=== PATIENT | female | born 1950 | race American Indian/Alaskan Native ===

== ENCOUNTER 2018-11-28 11:25 | Day surgery (SDC) | payer MEDICARE ==
[2018-11-28] MEDS ORDERED: NACL 0.9% 1000 ML 1,000 ML IV SCH (13:00)
--- NOTE | 2018-11-28 13:20 | Anesthesia Day of Surgery ---
Anesthesia Day of Surgery - Day of Surgery Patient Examined: Yes Patient H&P Reviewed: Yes Patient is NPO: Yes
--- NOTE | 2018-11-28 13:20 | Anesthesia Consultation ---
Anesthesia Consult and Med Hx Date of service: 11/28/18 - Airway Anesthetic Teeth Evaluation: Dentures ROM Head & Neck: Adequate Mental/Hyoid Distance: Adequate Mallampati Class: Class II Intubation Access Assessment: Good - Pulmonary Exam CTA: Yes - Cardiac Exam Cardiac Exam: RRR - Pre-Operative Health Status ASA Pre-Surgery Classification: ASA3 Proposed Anesthetic Plan: MAC (Dementia, HTn, Bipolar , SZ) - Cardiovascular System Hx Hypertension: Yes
[2018-11-28] MEDS ORDERED: DIPRIVAN 10 MG/ML IV ONE ×2 (15:41)
--- NOTE | 2018-11-28 16:15 | Operative Report ---
Operative Report Operative Report: Procedure: Colonoscopy with Ablation of multiple colon polyps. Attending physician: Trevor Nguyen M.D. [employer] Instructor: Trevor Nguyen M.D. Indication: Patient is a 68-year-old female who presents with a history of recurrent blood in stool/rectal bleeding. This colonoscopy serves to evaluate patient so that treatment may be directed based on the findings. Consent: Informed consent was obtained after advising the patient and family regarding nature of this procedure, its indications, potential benefits as well as possible complications including but not limited to bleeding perforation and adverse reaction to medication, infection as well as other cardiopulmonary complications. An informed written and verbal consent was then obtained after due opportunity was provided for questions and answers. Monitoring: Patient was monitored continuously with pulse oximetry and electrocardiographic recordings as well as blood pressure recordings. Vital signs remained stable throughout this procedure with no untoward events. Preoperative assessment: Patient was assessed immediately prior to this procedure for capacity to tolerate monitored anesthesia care and moderate sedation as well as general anesthesia. Patient's ASA classification is 2, Mallampati class is 2, Hyomental distance is 3. Instrument: Olympus video colonoscope.: CF-HQ 190L Medications: Propofol given intravenously in divided doses. For details please refer to anesthesia records. Description of procedure: Patient was placed in the left lateral decubitus position after achieving sedation, a digital rectal examination was performed following which the colonoscope was introduced into the anal verge and advanced to the cecum which was identified by the cecal valve, the appendiceal orifice, as well as by the cecal strap and direct transillumination. The colonoscope was subsequently withdrawn with careful inspection of all mucosal surfaces. Patient tolerated this procedure well and was subsequently taken to the recovery room. The following findings were noted. Findings: The colon was moderately tortuous. The cecum otherwise was normal. The ascending colon was normal. The transverse colon was normal. The descending colon was normal. In the sigmoid colon, the patient had 4 diminutive flat polyps. These were completely ablated. The rectum was normal. On retroflex view of the anal verge, patient had internal hemorrhoids. Impression: Diminutive flat distal sigmoid polyps status post ablation Time managed. Plan: High-fiber diet. When necessary stool softeners. Patient will be followed clinically as an outpatient.
--- NOTE | 2018-11-28 16:18 | Discharge Summary ---
Short Stay Discharge Plan Activity: advance as tolerated Weight Bearing Status: Weight Bear as Tolerated Diet: regular Follow up with: HERIBERTO BRYANT MD [Primary Care Provider] - 7 Days
[2018-11-28 16:48] VITALS: BP 157/80
== END 2018-11-28 11:26 | disposition home or self-care (01) ==
LOC: GIO 11:25
PROVIDERS: ATTEND Internal Medicine Gastroenterology
DX: K64.8 Other hemorrhoids (principal); K62.5 Hemorrhage of anus and rectum; I10 Essential (primary) hypertension; E03.9 Hypothyroidism, unspecified; Z91.041 Radiographic dye allergy status; Z88.5 Allergy status to narcotic agent; Z88.8 Allergy status to other drugs, medicaments and biological substances; Z79.899 Other long term (current) drug therapy; Z87.891 Personal history of nicotine dependence; Z98.51 Tubal ligation status; Z90.710 Acquired absence of both cervix and uterus; Z98.890 Other specified postprocedural states
CPT/HCPCS: 45388; J2704; J7030